=== PATIENT | male | born 1995 | race Caucasian/White ===

== ENCOUNTER 2021-02-25 17:04 | Emergency (ER) | payer OTHER ==
[~2021-02-25] VITALS: Ht 162.6 cm; Wt 61.2 kg
[2021-02-25 17:42] LABS: HEMATOCRIT 40.9 % (42.0-52.0); HEMOGLOBIN 14.1 gm/dL (14.0-18.0); MCH 28.3 pg (26.0-34.0); MCHC 34.5 g/dL (28.0-37.0); MCV 81.9 fL (80.0-100.0); RDW 13.5 % (10.5-14.5); WBC 6.3 thou/uL (4.0-11.0)
[2021-02-25 17:49] LABS: CREATININE 0.7 mg/dL (0.7-1.3); POTASSIUM 3.5 mmol/L (3.5-5.1)
[2021-02-25 18:01] LABS: ALBUMIN 4.1 g/dL (3.4-5.0); CALCIUM 8.5 mg/dL (8.5-10.1); TOTAL BILIRUBIN 0.2 mg/dL (0.2-1.0); TOTAL PROTEIN 7.4 g/dL (6.4-8.2)
[2021-02-25 19:04] LABS: URINE BILIRUBIN NEGATIVE (Negative); URINE BLOOD NEGATIVE (Negative); URINE CLARITY CLEAR; URINE COLOR YELLOW; URINE GLUCOSE-RANDOM* NEGATIVE (Negative); URINE KETONES NEGATIVE (Negative); URINE LEUKOCYTES-REFLEX NEGATIVE (Negative); URINE NITRITE-REFLEX NEGATIVE (Negative); URINE PROTEIN (DIPSTICK) NEGATIVE (Negative); URINE UROBILINOGEN 0.2 E.U./dl (0.2-1.0)
[2021-02-25 22:16] VITALS: BP 118/78
--- NOTE | 2021-02-26 08:23 | EKG ---
[place] [address] [facility] [place] [address] ELECTROCARDIOGRAM REPORT Name: TONIA RYAN Room #: [facility]#: [id number] Admission: 02/25/21 Attend Phys: Discharge: 02/25/21 Date of : [birth year] Report #: [id number] [facility] ED Test Date: 2021-02-25 Test Time: 17:08:21 Pat Name: TONIA RYAN Department: Room: Gender: Unix Consultant: jonah : 1995 Requested By: Regi Reese Order Number: [id number] MD: All Chávez Measurements Intervals [place] Rate: 77 P: 78 [place]: 159 QRS: 79 QRSD: 84 T: 50 QT: 366 QTc: 415 Interpretive Statements Sinus rhythm J Point elevation V2-3, probable normal early repol pattern Baseline wander in lead(s) I,III,aVL No previous ECG available for comparison Electronically Signed On 02-26-2021 8:23:24 CDT by All Chávez [email or web address] <ELECTRONICALLY SIGNED> By: All Chávez MD, [facility] 02/26/21822 07 07 All Chávez MD, FACC /EPI
--- NOTE | 2021-02-27 07:35 | EKG ---
[place] [address] [facility] [address] ELECTROCARDIOGRAM REPORT Name: TONIA RYAN Room #: [facility]#: [id number] Admission: 02/25/21 Attend Phys: Discharge: 02/25/21 Date of : [birth year] Report #: [id number] [facility] ED Test Date: 2021-02-25 Test Time: 21:39:30 Pat Name: TONIA RYAN Department: Room: Gender: Supply Chain Manager: rex : 1995 Requested By: Regi Reese Order Number: [id number] MD: All Chávez Measurements Intervals [place] Rate: 62 P: 44 [place]: 181 QRS: 43 QRSD: 89 T: 31 QT: 405 QTc: 412 Interpretive Statements Sinus rhythm Early repol pattern Compared to ECG 02/25/2021 17:08:21 No significant changes Electronically Signed On 02-27-2021 7:35:22 CDT by All Chávez [email or web address] <ELECTRONICALLY SIGNED> By: All Chávez MD, [facility] 02/27/21 0735 2139 2139 All Chávez MD, FACC /EPI
== END 2021-02-25 22:14 | disposition home or self-care (01) ==
LOC: ER 17:04
PROVIDERS: Nurse Practitioner Family
DX: R07.89 Other chest pain (principal); R06.02 Shortness of breath; N50.812 Left testicular pain; R35.0 Frequency of micturition; Z87.891 Personal history of nicotine dependence